=== PATIENT | male | born 1950 | race Caucasian/White ===

== ENCOUNTER 2020-01-02 09:56 | Outpatient (CLI) | payer MEDICARE, SELFPAY ==
[2020-01-02 11:01] LABS: INR 1.1; Prothrombin Time 14.5 Seconds (11.1-14.7)
== END 2020-01-02 09:57 | disposition home or self-care (01) ==
PROVIDERS: Visit Provider Nurse Practitioner Adult Health
DX: Z79.01 Long term (current) use of anticoagulants (principal)
CPT/HCPCS: 36415; 85610

== ENCOUNTER 2020-01-30 08:41 | Outpatient (CLI) | payer MEDICARE, SELFPAY ==
[2020-01-30 09:12] LABS: INR 1.1; Prothrombin Time 14.9 Seconds (11.1-14.7)
== END 2020-01-30 08:42 | disposition home or self-care (01) ==
PROVIDERS: Visit Provider Nurse Practitioner Adult Health
DX: Z79.01 Long term (current) use of anticoagulants (principal)
CPT/HCPCS: 36415; 85610